=== PATIENT | female | born 2000 | race Two or more races ===

== ENCOUNTER 2024-04-29 18:40 | Emergency (ER) | payer OTHER | END 2024-04-29 20:28 | disposition home or self-care (01) | LOC: CSHERS 18:40 | DX: K03.81 Cracked tooth (principal); K04.7 Periapical abscess without sinus; R22.0 Localized swelling, mass and lump, head; Z55.0 Illiteracy and low-level literacy; E10.9 Type 1 diabetes mellitus without complications | CPT/HCPCS: 41800; 99283 ==

== ENCOUNTER 2024-08-10 11:30 | Emergency (ER) | payer OTHER ==
[2024-08-10] MEDS ORDERED: Ketorolac Tromethamine 30 MG (1 mL) VIAL ONE (12:28)
== END 2024-08-10 12:48 | disposition home or self-care (01) ==
LOC: CSHERS 11:30
DX: S13.4XXA Sprain of ligaments of cervical spine, initial encounter (principal); M54.12 Radiculopathy, cervical region; M25.511 Pain in right shoulder; E10.9 Type 1 diabetes mellitus without complications; V89.2XXA Person injured in unspecified motor-vehicle accident, traffic, initial encounter
CPT/HCPCS: 72040; 72072; 96372; 99284; J1885